=== PATIENT | female | born 1940 | race Caucasian/White ===

== ENCOUNTER → 2017-05-22 | Outpatient (CLI) | payer MEDICARE, BC ==
[~2017-05-22] MED LIST: AMITRIPTYLINE H50 M1 PO; AMITRIPTYLINE50 MG PO; CAL-MAG1 TAB PO; CARBAMAZEPINE100 MG PO; DIOVAN160 MG PO; ESTRACE PO; EXFORGE 5/320 PO; FISH OIL CONC1000 MG PO; HYDROCHLOROTHIA25 MG PO; MULTI VITAMINS1 TAB PO; SIMVASTATIN40 MG PO; TEGRETOL 1100 MG/TAB PO
== END ==
LOC: COL.VAS 05-14 13:00
DX: I65.21 Occlusion and stenosis of right carotid artery (principal); I63.9 Cerebral infarction, unspecified; I10 Essential (primary) hypertension

== ENCOUNTER → 2017-07-31 | Outpatient (CLI) | payer MEDICARE, BC | LOC: MC.RAD 14:25 | DX: R92.8 Other abnormal and inconclusive findings on diagnostic imaging of breast (principal) ==

== ENCOUNTER 2017-08-19 19:26 | Inpatient (IN) | payer MEDICARE, BC ==
[~2017-08-19] VITALS: Ht 170.2 cm; Wt 92.0 kg
[2017-08-19 20:26] LABS: HEMATOCRIT 42.3 % (37.0-47.0); HEMOGLOBIN 13.9 g/dl (12.5-16.0); MEAN CELL VOLUME 88 fl (80.0-100.0); MEAN CORPUSCULAR HEMOGLOBIN 29 pg (27.0-31.0); MEAN CORPUSCULAR HGB CONC 33 g/dl (33.0-37.0); MEAN PLATELET VOLUME 10.2 fl (7.4-10.4); PLATELET COUNT 288 K/mm3 (130-400); RED BLOOD COUNT 4.81 M/mm3 (4.10-5.30); WHITE BLOOD COUNT 11.8 K/mm3 (4.8-10.8)
[2017-08-19 20:37] LABS: ADD PATHOLOGY DIFF REVIEW NO
[2017-08-19 20:37] LABS: INFLUENZA A NEGATIVE; INFLUENZA B NEGATIVE
[2017-08-19 20:42] LABS: ALBUMIN 4.7 gm/dL (3.5-5.0); CALCIUM 9.6 mg/dL (8.4-10.2); CREATININE, serum 0.62 mg/dL (0.52-1.25); POTASSIUM 3.8 mmol/L (3.4-5.0); TOTAL PROTEIN 7.7 gm/dL (6.4-8.2)
[2017-08-19 21:02] LABS: BAND 6 % (0-10); LYMPHOCYTE 4 % (20.0-51.0); NEUTROPHILS 84 % (42.0-75.2); TOTAL CELLS COUNTED 100
[2017-08-19 21:03] LABS: ANISOCYTOSIS 2+; HYPOCHROMIA 1+; MICROCYTOSIS 2+
[2017-08-19 21:18] LABS: COLLECTION METHOD CLEAN CATCH
[2017-08-19 21:30] LABS: MUCOUS Present /lpf; PH 5 (5-8); SQUAMOUS EPITHELIAL None Seen /hpf; URINE APPEARANCE Clear; URINE BACTERIA Rare /hpf; URINE BILIRUBIN Negative (NEGATIVE); URINE BLOOD Negative (NEGATIVE); URINE COLOR Yellow; URINE GLUCOSE 2+ (NEGATIVE); URINE KETONE Trace (NEGATIVE); URINE LEUKOCYTE ESTERASE Trace (NEGATIVE); URINE PROTEIN(semi-quant) Negative (NEGATIVE); URINE RBC 0-2 /hpf; URINE UROBILINOGEN Negative (NEGATIVE)
[2017-08-19] MEDS ORDERED: CELEXA40 MG PO (21:48)
[2017-08-19] MEDS ORDERED: HCTZ 25MG TAB25 MG PO (21:48)
[2017-08-19] MEDS ORDERED: GLUCOPHAGE XR500 M1 PO (21:48)
[2017-08-19] MEDS ORDERED: LANTUS SOLOS100 U/ML SQ (21:49)
[2017-08-19] MEDS ORDERED: AMITRIPTYLINE H50 M1 PO (21:49)
[2017-08-19] MEDS ORDERED: TOPROL XL 50MG50 MG PO (21:49)
[2017-08-19] MEDS ORDERED: COZAAR100 MG PO (21:49)
[2017-08-19] MEDS ORDERED: LIPITOR 40MG TA40 MG PO (21:49)
[2017-08-19 23:05] LABS: ALLEN TEST YES; ALLENS TEST RESULT PASS; ARTERIAL BLD GAS O2 SATURATION 94.1 % (92-100); ARTERIAL BLD GAS TCO2 CT 25.2; ARTERIAL BLOOD GAS BASE EXCESS 1.1 (-2-2); ARTERIAL BLOOD GAS HCO3 24.1 meq/L (22-26); ARTERIAL BLOOD GAS PO2 67.6 mmHg (80-100); ARTERIAL BLOOD GAS pH 7.47 (7.35-7.45); ATS? YES
[2017-08-20] VITALS (8 sets, daily range): BP systolic 109–166; BP diastolic 65–78; PULSE 81–101; TEMP 97.6–100.2
[2017-08-20 07:34] LABS: BASO % 0.3 % (0.0-2.0); EOS % 0.5 % (0-4.0); GRAN # 5.8 (1.4-6.5); GRAN % 75.2 % (42.2-75.2); HEMATOCRIT 38.4 % (37.0-47.0); HEMOGLOBIN 12.5 g/dl (12.5-16.0); LYMPH # 0.8 (1.2-3.4); LYMPH % 10.2 % (20.0-51.0); MEAN CELL VOLUME 89 fl (80.0-100.0); MEAN CORPUSCULAR HEMOGLOBIN 29 pg (27.0-31.0); MEAN CORPUSCULAR HGB CONC 33 g/dl (33.0-37.0); MEAN PLATELET VOLUME 10.9 fl (7.4-10.4); MONO % 13.5 % (1.7-9.3); PLATELET COUNT 254 K/mm3 (130-400); RED BLOOD COUNT 4.34 M/mm3 (4.10-5.30); WHITE BLOOD COUNT 7.7 K/mm3 (4.8-10.8)
[2017-08-20 07:45] LABS: CALCIUM 8.5 mg/dL (8.4-10.2); CREATININE, serum 0.6 mg/dL (0.52-1.25); POTASSIUM 3.3 mmol/L (3.4-5.0)
[2017-08-21 03:50] VITALS: BP 137/83; PULSE 86; TEMP 97.6
[2017-08-21 06:12] LABS: CALCIUM 8.7 mg/dL (8.4-10.2); CREATININE, serum 0.59 mg/dL (0.52-1.25); MAGNESIUM 2.1 mg/dL (1.6-2.3); POTASSIUM 3.9 mmol/L (3.4-5.0)
[2017-08-21 09:18] VITALS: BP 153/80; PULSE 99; TEMP 97.9
[2017-08-21 12:07] VITALS: BP 130/85; PULSE 93; TEMP 97.8
[2017-08-21 15:22] VITALS: BP 151/80; PULSE 88; TEMP 98
[2017-08-21 20:32] VITALS: BP 137/65; PULSE 90; TEMP 98
[2017-08-21 23:33] VITALS: BP 154/67; PULSE 80; TEMP 98
[2017-08-22 03:11] VITALS: BP 160/75; PULSE 73; TEMP 98
[2017-08-22 07:20] LABS: CALCIUM 8.6 mg/dL (8.4-10.2); CREATININE, serum 0.63 mg/dL (0.52-1.25); POTASSIUM 3.4 mmol/L (3.4-5.0)
[2017-08-22] MEDS ORDERED: CILOXAN 5 ML5 ML OP (09:11)
[2017-08-22] MEDS ORDERED: CEFTIN500 MG PO (09:13)
[2017-08-22] MEDS ORDERED: IPRATROPIUM BROM3 M1 IH (09:15)
[2017-08-22] MEDS ORDERED: ROBITUSSIN DM 105 ML PO (09:18)
[2017-08-22] MEDS ORDERED: NORVASC 5MG5 MG/TAB PO (09:19)
[2017-08-22] MEDS ORDERED: MEDROL 4MG DOSPA4 MG PO (09:20)
[2017-08-22] MEDS ORDERED: LEVEMIR FLEX100 U/ML SQ (09:21)
[2017-08-22 09:52] VITALS: BP 150/63; PULSE 93; TEMP 97.9
[2017-08-22 10:14] VITALS: BP 150/63; PULSE 93; TEMP 97.9
== END 2017-08-22 12:40 | DRG 871 ==
LOC: COL.ER 19:26 → MEDICAL 21:51
PROVIDERS: Emergency Medicine; Internal Medicine; Physician Assistant
DX: A41.51 Sepsis due to Escherichia coli [E. coli] (principal); J18.9 Pneumonia, unspecified organism; N39.0 Urinary tract infection, site not specified; E87.1 Hypo-osmolality and hyponatremia; E87.2 Acidosis; J44.1 Chronic obstructive pulmonary disease with (acute) exacerbation; I16.0 Hypertensive urgency; E11.9 Type 2 diabetes mellitus without complications; B96.20 Unspecified Escherichia coli [E. coli] as the cause of diseases classified elsewhere; E87.6 Hypokalemia; H10.33 Unspecified acute conjunctivitis, bilateral
CPT/HCPCS: 99223-AI; 99232-AI; 99233-AI; 99239; J0456; J0696; J1650; J1815; J2930; J7030; J7040; J7050; J7512

== ENCOUNTER → 2017-08-31 | Outpatient (REF) ==
[~2017-08-31] MED LIST changes: +BACTRIM DS 8001 TAB PO; +CEFTIN500 MG PO; +CELEXA40 MG PO; +CILOXAN 5 ML5 ML OP; +COZAAR100 MG PO; +GLUCOPHAGE XR500 M1 PO; +HCTZ 25MG TAB25 MG PO; +IPRATROPIUM BROM3 M1 IH; +LANTUS SOLOS100 U/ML SQ; +LEVEMIR FLEX100 U/ML SQ; +LIPITOR 40MG TA40 MG PO; +MEDROL 4MG DOSPA4 MG PO; +NORVASC 5MG5 MG/TAB PO; +ROBITUSSIN DM 105 ML PO; +TOPROL XL 50MG50 MG PO; +TYLENOL 325MG325 MG PO
[2017-08-31 12:39] LABS: COLLECTION METHOD CLEAN CATCH
[2017-08-31 12:59] LABS: PH 5 (5-8); SQUAMOUS EPITHELIAL None Seen /hpf; URINE APPEARANCE Clear; URINE BACTERIA Rare /hpf; URINE BILIRUBIN Negative (NEGATIVE); URINE BLOOD Negative (NEGATIVE); URINE COLOR Yellow; URINE GLUCOSE Negative (NEGATIVE); URINE KETONE Negative (NEGATIVE); URINE LEUKOCYTE ESTERASE 3+ (NEGATIVE); URINE NITRATE Negative (NEGATIVE); URINE PROTEIN(semi-quant) Negative (NEGATIVE); URINE UROBILINOGEN Negative (NEGATIVE)
== END ==
LOC: ZCOL.LAB 12:37
PROVIDERS: Family Medicine
DX: Z01.89 Encounter for other specified special examinations (principal)

== ENCOUNTER 2017-09-02 13:46 | Inpatient (IN) | payer MEDICARE, BC ==
[~2017-09-02] VITALS: Ht 170.2 cm; Wt 85.1 kg
[~2017-09-02 13:46] MED LIST changes: -BACTRIM DS 8001 TAB PO; -TYLENOL 325MG325 MG PO
[2017-09-02 14:22] LABS: BASO # 0.1 (0.0-0.2); BASO % 0.3 % (0.0-2.0); EOS # 0.3 (0.0-0.7); EOS % 1.8 % (0-4.0); GRAN # 11.5 (1.4-6.5); GRAN % 78.1 % (42.2-75.2); HEMOGLOBIN 14.3 g/dl (12.5-16.0); LYMPH # 1.7 (1.2-3.4); LYMPH % 11.6 % (20.0-51.0); MEAN CELL VOLUME 89 fl (80.0-100.0); MEAN CORPUSCULAR HEMOGLOBIN 29 pg (27.0-31.0); MEAN CORPUSCULAR HGB CONC 33 g/dl (33.0-37.0); MEAN PLATELET VOLUME 9.9 fl (7.4-10.4); MONO # 1.2 (0.1-0.6); MONO % 7.8 % (1.7-9.3); PLATELET COUNT 339 K/mm3 (130-400); RED BLOOD COUNT 4.94 M/mm3 (4.10-5.30); REDCELL DISTRIBUTION WIDTH-CV 13.2 % (11.5-14.5)
[2017-09-02 14:32] LABS: ALANINE AMINOTRANSFERASE 32 U/L (9-52); ALBUMIN 4.2 gm/dL (3.5-5.0); ALKALINE PHOSPHATASE 83 U/L (50-136); ANION GAP 15 mmol/L (7-16); AST,SGOT 21 U/L (15-37); BILIRUBIN,TOTAL 0.4 mg/dL (0.0-1.0); BLOOD UREA NITROGEN 7 mg/dL (7-17); CALCIUM 9.4 mg/dL (8.4-10.2); CARBON DIOXIDE 24 mmol/L (22-30); CHLORIDE 98 mmol/L (98-107); CREATININE, serum 0.76 mg/dL (0.52-1.25); GLUCOSE 215 mg/dL (74-106); MAGNESIUM 1.3 mg/dL (1.6-2.3); PHOSPHOROUS 3.4 mg/dL (2.5-4.5); POTASSIUM 3.7 mmol/L (3.4-5.0); SODIUM 136 mmol/L (137-145); TOTAL PROTEIN 7.2 gm/dL (6.4-8.2)
[2017-09-02 14:49] LABS: TROPONIN-I < 0.012 ng/mL (0.000-0.034)
[2017-09-02 16:04] LABS: COLLECTION METHOD CATHETER
[2017-09-02 16:10] LABS: MUCOUS Present /lpf; PH 5 (5-8); SQUAMOUS EPITHELIAL 0-2 /hpf; URINE APPEARANCE Hazy; URINE BACTERIA Rare /hpf; URINE BILIRUBIN Negative (NEGATIVE); URINE BLOOD Negative (NEGATIVE); URINE COLOR Yellow; URINE GLUCOSE 3+ (NEGATIVE); URINE KETONE Negative (NEGATIVE); URINE LEUKOCYTE ESTERASE 2+ (NEGATIVE); URINE NITRATE Negative (NEGATIVE); URINE PROTEIN(semi-quant) Negative (NEGATIVE)
[2017-09-02] MEDS ORDERED: BACTRIM DS 8001 TAB PO (17:47)
[2017-09-02 17:59] VITALS: BP 144/68; PULSE 82; TEMP 98.3
[2017-09-02 19:42] VITALS: BP 147/65; PULSE 89; TEMP 97.9
[2017-09-02 23:40] VITALS: BP 144/68; PULSE 90; TEMP 97.6
[2017-09-03 03:46] VITALS: BP 150/73; PULSE 88; TEMP 98
[2017-09-03 07:05] LABS: BASO # 0.1 (0.0-0.2); BASO % 0.8 % (0.0-2.0); EOS # 0.4 (0.0-0.7); EOS % 4.1 % (0-4.0); GRAN # 6.5 (1.4-6.5); GRAN % 69.4 % (42.2-75.2); HEMATOCRIT 39.1 % (37.0-47.0); HEMOGLOBIN 12.7 g/dl (12.5-16.0); LYMPH # 1.5 (1.2-3.4); LYMPH % 15.6 % (20.0-51.0); MEAN CELL VOLUME 89 fl (80.0-100.0); MEAN CORPUSCULAR HEMOGLOBIN 29 pg (27.0-31.0); MEAN CORPUSCULAR HGB CONC 33 g/dl (33.0-37.0); MEAN PLATELET VOLUME 9.9 fl (7.4-10.4); MONO # 0.9 (0.1-0.6); MONO % 9.8 % (1.7-9.3); PLATELET COUNT 295 K/mm3 (130-400); RED BLOOD COUNT 4.42 M/mm3 (4.10-5.30); REDCELL DISTRIBUTION WIDTH-CV 13.5 % (11.5-14.5)
[2017-09-03 07:21] LABS: CALCIUM 8.6 mg/dL (8.4-10.2); CREATININE, serum 0.59 mg/dL (0.52-1.25); POTASSIUM 3.6 mmol/L (3.4-5.0)
[2017-09-03 08:00] VITALS: BP 152/65; PULSE 89; TEMP 97.8
[2017-09-03 11:10] VITALS: BP 131/64; PULSE 78; TEMP 97.9
[2017-09-03 15:43] VITALS: BP 138/73; PULSE 91; TEMP 97.6
[2017-09-03 19:50] VITALS: BP 151/70; PULSE 82; TEMP 98
[2017-09-04 00:15] VITALS: BP 158/69; PULSE 77; TEMP 96.8
[2017-09-04 03:34] VITALS: BP 168/71; PULSE 68; TEMP 97.9
[2017-09-04 06:35] LABS: BASO # 0.1 (0.0-0.2); BASO % 0.9 % (0.0-2.0); EOS # 0.5 (0.0-0.7); EOS % 6.8 % (0-4.0); GRAN # 3.8 (1.4-6.5); HEMATOCRIT 39.6 % (37.0-47.0); LYMPH # 1.5 (1.2-3.4); LYMPH % 22.6 % (20.0-51.0); MEAN CELL VOLUME 88 fl (80.0-100.0); MEAN CORPUSCULAR HEMOGLOBIN 29 pg (27.0-31.0); MEAN CORPUSCULAR HGB CONC 33 g/dl (33.0-37.0); MONO # 0.8 (0.1-0.6); MONO % 11.4 % (1.7-9.3); PLATELET COUNT 298 K/mm3 (130-400); RED BLOOD COUNT 4.48 M/mm3 (4.10-5.30); REDCELL DISTRIBUTION WIDTH-CV 13.5 % (11.5-14.5)
[2017-09-04 06:56] LABS: CREATININE, serum 0.62 mg/dL (0.52-1.25); POTASSIUM 3.7 mmol/L (3.4-5.0)
[2017-09-04 07:58] VITALS: BP 147/78; PULSE 79; TEMP 97.9
[2017-09-04 11:24] VITALS: BP 137/71; PULSE 73; TEMP 97.6
[2017-09-04 15:27] VITALS: BP 129/70; PULSE 81; TEMP 98.2
[2017-09-04 20:49] VITALS: BP 137/73; PULSE 80; TEMP 98.7
[2017-09-05 03:31] VITALS: BP 147/63; PULSE 67; TEMP 96.8
[2017-09-05] MEDS ORDERED: TYLENOL 325MG325 MG PO (08:00)
[2017-09-05 08:41] VITALS: BP 139/75; PULSE 90; TEMP 97.5
[2017-09-05 11:17] VITALS: BP 133/75; PULSE 89; TEMP 97.7
[2017-09-05 11:31] VITALS: BP 133/75; PULSE 89; TEMP 97.7
== END 2017-09-05 12:30 | DRG 872 ==
LOC: COL.ER 13:46 → MEDICAL 16:46 → COL.ER 16:46 → MEDICAL 16:46
PROVIDERS: Emergency Medicine; Internal Medicine; Physician Assistant
DX: A41.9 Sepsis, unspecified organism (principal); N39.0 Urinary tract infection, site not specified; N30.00 Acute cystitis without hematuria; I10 Essential (primary) hypertension; J44.9 Chronic obstructive pulmonary disease, unspecified; G20 Parkinson's disease; E11.9 Type 2 diabetes mellitus without complications
CPT/HCPCS: OP; 99223-AI; 99232-AI; 99238; G8978-GP; G8979-GP; J0696; J1650; J1815; J7030; J7040

== ENCOUNTER → 2017-09-25 | Outpatient (CLI) | payer MEDICARE, BC ==
[~2017-09-25] MED LIST changes: +BACTRIM DS 8001 TAB PO; +TYLENOL 325MG325 MG PO
== END ==
LOC: COL.RAD 09:56
DX: Z87.440 Personal history of urinary (tract) infections (principal)

== ENCOUNTER 2017-11-13 12:20 | Emergency (ER) | payer MEDICARE, BC ==
[~2017-11-13] VITALS: Ht 172.7 cm; Wt 90.9 kg
[2017-11-13 12:42] LABS: BASO # 0.1 (0.0-0.2); BASO % 0.5 % (0.0-2.0); EOS # 0.4 (0.0-0.7); EOS % 2.5 % (0-4.0); GRAN # 10.1 (1.4-6.5); GRAN % 72.9 % (42.2-75.2); HEMATOCRIT 43.4 % (37.0-47.0); HEMOGLOBIN 14.2 g/dl (12.5-16.0); LYMPH # 2.2 (1.2-3.4); LYMPH % 15.7 % (20.0-51.0); MEAN CELL VOLUME 89 fl (80.0-100.0); MEAN CORPUSCULAR HEMOGLOBIN 29 pg (27.0-31.0); MEAN CORPUSCULAR HGB CONC 33 g/dl (33.0-37.0); MEAN PLATELET VOLUME 10.5 fl (7.4-10.4); MONO # 1.1 (0.1-0.6); MONO % 7.8 % (1.7-9.3); PLATELET COUNT 321 K/mm3 (130-400); RED BLOOD COUNT 4.89 M/mm3 (4.10-5.30); REDCELL DISTRIBUTION WIDTH-CV 13.6 % (11.5-14.5)
[2017-11-13 12:49] LABS: INR 1.1 (0.8-3.0); PROTHROMBIN TIME 12.3 SECONDS (9.7-12.8)
[2017-11-13 12:56] LABS: ALBUMIN 4.6 gm/dL (3.5-5.0); BILIRUBIN,TOTAL 0.9 mg/dL (0.0-1.0); CALCIUM 9.5 mg/dL (8.4-10.2); CREATININE, serum 0.62 mg/dL (0.52-1.25); POTASSIUM 3.9 mmol/L (3.4-5.0); TOTAL PROTEIN 7.5 gm/dL (6.4-8.2)
[2017-11-13 13:12] LABS: PROLACTIN 58.3 ng/mL (3.0-18.6)
[2017-11-13 14:59] LABS: COLLECTION METHOD CATHETER
[2017-11-13 15:07] LABS: MUCOUS Present /lpf; PH 7 (5-8); SQUAMOUS EPITHELIAL None Seen /hpf; URINE APPEARANCE Hazy; URINE BACTERIA None Seen /hpf; URINE BILIRUBIN Negative (NEGATIVE); URINE BLOOD Negative (NEGATIVE); URINE COLOR Yellow; URINE GLUCOSE 1+ (NEGATIVE); URINE KETONE Trace (NEGATIVE); URINE LEUKOCYTE ESTERASE Negative (NEGATIVE); URINE NITRATE Positive (NEGATIVE); URINE PROTEIN(semi-quant) Negative (NEGATIVE); URINE RBC 0-2 /hpf; URINE UROBILINOGEN Negative (NEGATIVE)
[2017-11-13 15:13] VITALS: BP 161/83; PULSE 58
== END 2017-11-13 15:20 | disposition short-term general hospital (02) ==
LOC: COL.ER 12:20
PROVIDERS: Emergency Medicine
DX: S06.0X1A Concussion with loss of consciousness of 30 minutes or less, initial encounter (principal); S02.2XXA Fracture of nasal bones, initial encounter for closed fracture; S02.82XA Fracture of other specified skull and facial bones, left side, initial encounter for closed fracture; I10 Essential (primary) hypertension; E11.9 Type 2 diabetes mellitus without complications; J44.9 Chronic obstructive pulmonary disease, unspecified; E78.5 Hyperlipidemia, unspecified; G20 Parkinson's disease; Z23 Encounter for immunization; Z79.4 Long term (current) use of insulin; W18.30XA Fall on same level, unspecified, initial encounter
CPT/HCPCS: J3010